=== PATIENT | female | born 1945 | race Caucasian/White ===

== ENCOUNTER → 2017-05-30 | Outpatient (CLI) | payer MEDICARE ==
--- NOTE | 2017-05-30 15:20 | MAMMOGRAPHY REPORT ---
BILATERAL DIGITAL SCREENING MAMMOGRAM TOMOSYNTHESIS WITH CAD: 05/30/2017 CLINICAL HISTORY: Routine screening. Patient has no complaints. TECHNIQUE: Breast tomosynthesis in addition to standard 2D mammography was performed. Current study was also evaluated with a Computer Aided Detection (CAD) system. COMPARISON: Comparison is made to exams dated: 05/29/2016 mammogram, 05/24/2015 mammogram, 05/21/2014 mammogram, 05/15/2013 mammogram, 05/13/2012 mammogram, and 05/11/2011 mammogram - [facility]. BREAST COMPOSITION: There are scattered areas of fibroglandular density in both breasts. FINDINGS: The parenchymal pattern is unchanged. No developing mass, architectural distortion or clus ter of suspicious microcalcifications is seen in either breast. IMPRESSION: ACR BI-RADS CATEGORY 2: BENIGN There is no mammographic evidence of malignancy. A 1 year screening mammogram is recommended. The pa tient will receive written notification of the results. Approximately 10% of breast cancers are not detected with mammography. A negative mammographic report should not delay biopsy if a clinically suggestive mass is present. Isha Guerra M.D. ay/:05/30/2017 12:21:40 [employer] Truck Operator: Leticia TORO)(Ana Lilia), [facility] letter sent: Normal 1/2 BI-RADS Code: ACR BI-RADS Category 2: Benign
== END | disposition home or self-care (01) ==
LOC: C.MAMM 10:01
PROVIDERS: ATTEND Obstetrics & Gynecology
DX: Z12.31 Encounter for screening mammogram for malignant neoplasm of breast (principal)

== ENCOUNTER 2017-07-08 12:54 | Emergency (ER) | payer BC, OTHER ==
[~2017-07-08] VITALS: Ht 167.6 cm; Wt 69.7 kg
[2017-07-08 13:02] VITALS: TEMP 36.5; Ht 167.6 cm; Wt 69.7 kg
[2017-07-08] MEDS ORDERED: XYLOCAINE 1%/SOD BICARB 20 ML VIAL INFIL ONE (13:15)
[2017-07-08] MEDS ORDERED: LEVO50TA6 PO (13:20)
[2017-07-08] MEDS ORDERED: SIMV40TA2 PO (13:20)
[2017-07-08 13:58] VITALS: BP 118/71; PULSE 69; O2SAT 96
--- NOTE | 2017-07-08 15:51 | EMERGENCY ROOM VISIT NOTE ---
History First contact with patient: 13:05 Chief Complaint: RECTAL PAIN Stated Complaint: HEMORRHOIDS Nursing Triage Summary: hemorhoid History of Present Illness The patient is a 72 year old female who presents to the Emergency Room with complaints of a possible thrombosed hemorrhoid. The patient has had thrombosed hemorrhoids in the past that have been drained. Her last one was approximately 3 years ago. She has not had any further surgical evaluation for possible more than surgical intervention. Her has a history of hemorrhoids, and well her to use some of his Anusol HC suppositories. She has been using these now for the past 48 hours without any significant relief. She has also tried sitz baths. She reports worsening swelling and pain, rating her discomfort a 4 out of 10. She denies any history of GI disease or chronic constipation. Review of Systems 10 system review was performed and was negative except for pertinent positives and negatives as indicated in history of present illness Past Medical/Surgical History Medical Problems: (1) Diverticulosis (2) Thrombosed external hemorrhoids Surgical Problems: (1) History of colonoscopy Family History Unremarkable Social History Smoking Status: Former Smoker Alcohol Use: occasionally Marital Status: Occupation Status: retired Current/Historical Medications Scheduled Levothyroxine Sodium (Levothyroxine Sodium), 50 MCG PO DAILY Simvastatin (Zocor), 40 MG PO QPM Physical Exam Vital Signs Date Time Temp Pulse Resp B/P (MAP) Pulse Ox O2 Delivery O2 Flow Rate FiO2 07/08/17 13:58 69 18 118/71 96 07/08/17 13:02 36.5 81 20 145/92 97 Room Air Physical Exam CONSTITUTIONAL: Healthy and well nourished. Alert and oriented X 3 with positive affect. HEENT: Normocephalic, atraumatic. Pupils equal, round and reactive. NECK: Full active range of motion without discomfort. MUSCULOSKELETAL: Full range of motion of all joints without discomfort. Gastrointestinal: Patient has no tenderness to palpation of the abdomen. With a female nurse can doffer present, examination shows a moderate-sized external hemorrhoid that is purple in color and firm to palpation. There is no peripheral erythema, induration or other obvious perirectal edema. INTEGUMENTARY: No rash or other significant dermatologic conditions noted. NEUROLOGIC: No focal neurologic deficits noted. Medical Decision & Procedures Medications Administered Medications (Trade) Dose Ordered Sig/Chelle Route Start Time Stop Time Status Last Admin Dose Admin Lidocaine HCl (Buffered Lidocaine 1% Inj) 20 ml ONE ONCE INFIL 07/08/17 13:15 07/08/17 13:16 DC 07/08/17 13:15 20 ML Procedure Hemorrhoid thrombectomy was performed under local anesthesia at the request of the patient. Using buffered 1% lidocaine without epinephrine, good local anesthesia was administered. A 1 cm incision was made with a oblong thrombus popping out of the incision. The area was then irrigated, and further probed with needle drivers without any additional clots found. A bulky dressing was applied. The patient tolerated the procedure well. ED Course Patient history and physical exam were performed. Nurse's notes were reviewed. The patient does have a prior history of thrombosed external hemorrhoids, and reports that since Anusol HC suppositories and other conservative measurements are not helping, requested a thrombectomy procedure. This was successfully performed. I did encourage the patient to use Anusol HC suppositories over the next few days. She was instructed to watch for any signs of infection or worsening pain. The patient was happy with plan of care, and denied any pain at the time of discharge. Medical Decision Medication Reconcilliation Current Medication List: was personally reviewed by me Blood Pressure Screening Patient's blood pressure: Normal blood pressure Impression Primary Impression: Thrombosed external hemorrhoid Departure Information Dispostion Home / Self-Care Condition GOOD Forms HOME CARE DOCUMENTATION FORM, IMPORTANT VISIT INFORMATION Patient Instructions Hemorrhoids Thrombosed, [facility] Additional Instructions Continue with your Anusol HC suppositories twice daily for the next 2-3 days. Also continue with sitz baths and Tucks pads to keep the hemorrhoid clean. Return to the emergency department for any progressively worsening condition. Suggest follow-up with a general surgeon to discuss further surgical options.
== END 2017-07-08 13:59 | disposition home or self-care (01) ==
LOC: C.EDB 12:55 → C.EDD 13:59
DX: K64.5 Perianal venous thrombosis (principal); K57.90 Diverticulosis of intestine, part unspecified, without perforation or abscess without bleeding; Z87.891 Personal history of nicotine dependence